=== PATIENT | female | born 1930 | race Caucasian/White ===

== ENCOUNTER 2019-05-28 22:37 | Inpatient (IN) ==
[2019-05-28] MEDS ORDERED: ASPIRIN PO ONE (23:16)
[2019-05-28] MEDS ORDERED: NITROGLYCERIN SL PRN (23:16)
--- NOTE | 2019-05-28 23:27 | PROVIDER DOCUMENTATION ---
HPI-Chest Pain - General Chief Complaint: Chest Pain Stated Complaint: cp Time Seen by Provider: 05/28/19 22:56 Allergies/Adverse Reactions: Patient Allergies Allergy/AdvReac Type Severity Reaction Status Date / Time Sulfa (Sulfonamide Allergy Intermediate RASH Verified 10/09/17 21:30 Antibiotics) Home Medications: Home Medication List Medication Instructions Recorded Confirmed Last Taken Type Ipratropium/Albuterol Sulfate 3 ml IH PRN PRN 11/06/13 09/27/16 11/05/13 23:00 History [Iprat-Albut 0.5-3(2.5) mg/3 ml] Cetirizine HCl [Zyrtec] 10 mg PO DAILY 09/27/16 09/27/16 09/26/16 21:00 History Clopidogrel Bisulfate [Plavix] 75 mg PO DAILY 09/27/16 10/09/17 10/09/17 History Ferrous Sulfate [Iron] 325 mg PO TID 09/27/16 10/09/17 10/09/17 History Methocarbamol [Robaxin-750] 750 mg PO DAILY #10 tablet 09/27/16 Unknown Rx Omeprazole [Prilosec] 40 mg PO DAILY 09/27/16 09/27/16 09/27/16 09:00 History Ranolazine E.r. [Ranexa] 500 mg PO BID 09/27/16 10/09/17 10/09/17 History Tramadol [Ultram] 50 mg PO Q8HR #12 tablet 09/27/16 Unknown Rx Amlodipine [Norvasc] 2.5 mg PO DAILY #30 tab 10/10/17 Unknown Rx Aspirin EC 81 mg PO DAILY #30 tab 10/10/17 Unknown Rx Levothyroxine [Synthroid] 88 mcg PO DAILY #30 tab 10/10/17 Unknown Rx Metoprolol Succinate E.r. [Toprol 25 mg PO DAILY #30 tab 10/10/17 Unknown Rx Xl] Spironolactone/Hctz [Aldactazide 1 ea PO DAILY #30 tab 10/10/17 Unknown Rx ] - History of Present Illness-CP Nature of Presenting Problem: 88y/o female with his of retrosternal chest pain which started around 9.30pm today. She states she was taking her pills this pm and choked while drinking water resulting in moderately severe chest pain which is now easing off . She has NTG for PRN use and takes baby ASA daily, she has not had any of both meds today. Denies nausea or diaphoresis Location: reports: central Chest Pain Radiation: reports: no radiation Quality of Pain: reports: sharp (but improving now without med) Onset/Duration: abrupt (after choking while taking her meds this PM), 1-3 hours ago Timing: still present, improving Modifying Factors: improves with: nothing Associated Symptoms: reports: denies symptoms Nitro Today/Relief: no nitro taken today Aspirin Treatment Today: no aspirin today Similar Symptoms Previously?: Yes Review of Systems - Adult - REVIEW OF SYSTEMS - ADULT Constitutional: reports: no symptoms reported Eyes: reports: no symptoms reported Cardiovascular: reports: see HPI Respiratory: reports: see HPI Gastrointestinal: reports: no symptoms reported Genitourinary: reports: no symptoms reported Musculoskeletal: reports: no symptoms reported Integumentary: reports: no symptoms reported Neurological: reports: no symptoms reported Psychiatric: reports: no symptoms reported Endocrine: reports: no symptoms reported Hematologic/Lymphatic: reports: no symptoms reported Allergic/Immunologic: reports: no symptoms reported Past History - Adult - PAST MEDICAL HISTORY-ADULT Review of Records: reports: Nursing Assessment Review, Medications Reviewed, Social history reviewed & non-contributory. Cardiovascular: reports: cardiac disease, CAD, HTN Respiratory: reports: denies history Gastrointestinal: reports: GERD (has had her esophagius stretched in the past) Genitourinary: reports: denies history Musculoskeletal: reports: denies history Neurological: reports: denies history Psychiatric: reports: denies history Endocrine/Immune: reports: denies history - PRIOR SURGERIES/PROCEDURES Surgical/Procedure History: reports: reviewed, not pertinent - IMMUNIZATION STATUS Childhood Immunizations: See Nurse Assessment Flu Vaccine: See Nurse Assessment - SOCIAL HISTORY Smoking: denies Substance Use: none/never Alcohol Use Frequency: rarely (Does not drink alcohol) Physical Exam-General - CONSTITUTIONAL General Appearance: appears well - EYES Eyes: PERRL/EOMI - NECK Neck: non-tender, full range of motion, supple - RESPIRATORY Respiratory: chest non-tender, lungs clear, normal breath sounds - CARDIOVASCULAR Cardiovascular: regular rate, rhythm, no edema, no murmur - GASTROINTESTINAL (ABDOMEN) Abdominal Exam: non tender, soft, no organomegaly - MUSCULOSKELETAL Extremity: normal range of motion, non-tender, normal gait (ambulated to the barthroom okay) - SKIN Integumentary: normal color, normal turgor - NEUROLOGIC Neurologic: grossly normal - PSYCHIATRIC Psych/Mental Status: normal mood/affect, normal thought content, normal thought process Progress - PLAN OF CARE/RESULTS Progress/Plan/Lab Results: Vital Signs - 8 hr 05/28/19 23:02 Temperature 97.7 F Pulse Rate 84 Respiratory Rate 14 Blood Pressure 180/84 O2 Sat by Pulse Oximetry 98 Laboratory Results - last 24 hr 05/28/19 05/28/19 05/28/19 22:50 22:50 22:50 WBC 4.78 L RBC 4.71 Hgb 15.6 Hct 45.8 MCV 97.2 MCH 33.1 H MCHC 34.1 RDW Std Deviation 14.0 Plt Count 254 MPV 11.1 H Immature Gran % (Auto) 0.0 Neut % (Auto) 55.9 Lymph % (Auto) 30.1 [place] % (Auto) 11.5 H Eos % (Auto) 1.5 Baso % (Auto) 1.0 H Immature Gran # (Auto) 0.00 Neut # (Auto) 2.67 Lymph # (Auto) 1.44 [place] # (Auto) 0.55 Eos # (Auto) 0.07 Baso # (Auto) 0.05 Sodium 140 Potassium 4.2 Chloride 104 Carbon Dioxide 24 L Anion Gap 12 BUN 18 Creatinine 0.7 Estimated GFR/1.73 m2 > 60 BUN/Creatinine Ratio 26 Glucose 140 H Calculated Osmolality 284 Calcium 9.7 Total Bilirubin 0.22 AST 19 ALT 9 L Alkaline Phosphatase 92 Troponin T 0.012 Total Protein 7.3 Albumin 4.3 Globulin 3.0 Albumin/Globulin Ratio 1.4 TSH 05/28/19 22:50 WBC RBC Hgb Hct MCV MCH MCHC RDW Std Deviation Plt Count MPV Immature Gran % (Auto) Neut % (Auto) Lymph % (Auto) [place] % (Auto) Eos % (Auto) Baso % (Auto) Immature Gran # (Auto) Neut # (Auto) Lymph # (Auto) [place] # (Auto) Eos # (Auto) Baso # (Auto) Sodium Potassium Chloride Carbon Dioxide Anion Gap BUN Creatinine Estimated GFR/1.73 m2 BUN/Creatinine Ratio Glucose Calculated Osmolality Calcium Total Bilirubin AST ALT Alkaline Phosphatase Troponin T Total Protein Albumin Globulin Albumin/Globulin Ratio TSH 8.67 H Orders Category Date Time Status CBC WITH ELECTRONIC DIFF [HEME] Stat Lab 05/28/19 22:50 Completed COMPREHENSIVE METABOLIC PANEL [CHEM] Stat Lab 05/28/19 22:50 Completed TROPONIN T Stat Lab 05/28/19 22:50 Completed TSH Stat Lab 05/28/19 22:50 Completed Aspirin Med 05/28/19 23:16 Discontinued 325 mg PO NOW ONE Nitroglycerin Sl [Nitroglycerin] Med 05/28/19 23:16 Active 0.4 mg SL Q5M PRN PRN EKG [EKG] Stat Ther 05/28/19 23:01 Draft EKG [EKG] Stat Ther 05/28/19 23:10 Draft EKG [EKG] Stat Ther 05/28/19 23:51 Draft Patient with chest pain , GABO v2 with negative troponin x1, chest pain subsided with NTG and ASA 325mg. pt now having mild epigastrium pain possibly from ASA. She has a heart score of 4 and will be admitted. Discussed with Hospitalist Dr Baker. Patient consented verbally to admission Result Diagrams: 05/28/19 22:50 05/28/19 22:50 - EKG 1 Rhythm: NSR [place]: left ST Wave: elevated (v2) 2 Rhythm: NSR [place]: left ST Wave: elevated (V2) - CONSULTS/PCP/HOSPITALIST Notification Consult Disposition: Admit (Discussed with Dr Baker at 1.17AM today 05/29/19) Departure - Departure Date of Disposition Decision: 05/29/19 Time of Disposition Decision: :17 DIAGNOSIS: Chest pain Qualifiers: Chest pain type: unspecified Qualified Code(s): R07.9 - Chest pain, unspecified Disposition: ADMITTED INPATIENT 09 Certified Medical Emergency: Emergent Condition: Fair Referrals and Follow-Ups: Fer Bryant MD [Primary Care Provider] - - Critical Care Note This patient required my direct & personal management of CC.: No Attestation - Physician/ SELMA Attestation The physician spent face to face time with patient:: Yes Advanced Practice Provider documentation review:: Supervising physician onsite and consulted in the evaluation and care of this patient. The physician did have a face to face encounter with the patient.
[2019-05-28 23:37] LABS: BASO# 0.05 X1000 (0.0-0.2); EOS# 0.07 X1000 (0.0-0.7); EOS% 1.5 % (0.0-10.0); HEMATOCRIT 45.8 % (37.0-47.0); HEMOGLOBIN 15.6 g/dL (12.0-16.0); LYMPH# 1.44 X1000 (1.2-3.4); LYMPH% 30.1 % (20.5-51.1); MCH 33.1 PG (27-31); MCHC 34.1 g/dL (33-37); MCV 97.2 FL (81-99); MONO# 0.55 X1000 (0.11-0.59); MONO% 11.5 % (1.7-9.3); MPV 11.1 FL (7.4-10.4); NEUT# 2.67 X1000 (1.4-6.5); NEUT% 55.9 % (42.2-75.2); PLT 254 X1000 (130-400); RBC 4.71 XMIL (4.2-5.4); WBC 4.78 X1000 (4.8-10.8)
--- NOTE | 2019-05-28 23:40 | EKG Report ---
Test Performed on : 05/28/2019 11:05:24 PM Test Reason : chest pain Blood Pressure : / mmHG Vent. Rate : 078 BPM Atrial Rate : 078 BPM P-R Int : 150 ms QRS Dur : 094 ms QT Int : 398 ms P-R-T Axes : 059 -31 095 degrees QTc Int : 453 ms Normal sinus rhythm. Possible Left atrial enlargement Left axis deviation Incomplete right bundle branch block Left ventricular hypertrophy Septal infarct (cited on or before 28-MAY-2019) T wave abnormality, consider lateral ischemia Abnormal ECG When compared with ECG of 28-MAY-2019 22:40, (Unconfirmed) fusion complexes are no longer present premature ventricular complexes. are no longer present premature supraventricular complexes. are no longer present Serial changes of Septal infarct present Unconfirmed Result
[2019-05-28 23:52] LABS: SODIUM 140 mmol/L (136-145)
[2019-05-28 23:53] LABS: AGAP 12; ALB/GLOB RATIO 1.4; ALBUMIN 4.3 g/dL (3.5-5.0); ALKALINE PHOSPHATASE 92 U/L (32-104); BUN 18 mg/dL (8-22); CALCIUM 9.7 mg/dL (8.8-10.2); CHLORIDE 104 mmol/L (98-107); COSMO 284; CREATININE 0.7 mg/dL (0.5-0.9); ESTIMATED GFR > 60; GLUCOSE 140 mg/dL (70-104); POTASSIUM 4.2 mmol/L (3.5-5.1); TCO2 24 mmol/L (25-35); TOTAL BILIRUBIN 0.22 mg/dL (0.20-1.00); TOTAL PROTEIN 7.3 g/dL (6.3-8.3)
--- NOTE | 2019-05-28 23:54 | EKG Report ---
Test Performed on : 05/28/2019 11:06:10 PM Test Reason : CP Blood Pressure : / mmHG Vent. Rate : 079 BPM Atrial Rate : 079 BPM P-R Int : 146 ms QRS Dur : 096 ms QT Int : 400 ms P-R-T Axes : 057 -31 095 degrees QTc Int : 458 ms Normal sinus rhythm. Possible Left atrial enlargement Left axis deviation Incomplete right bundle branch block Left ventricular hypertrophy Septal infarct (cited on or before 28-MAY-2019) T wave abnormality, consider lateral ischemia Abnormal ECG When compared with ECG of 28-MAY-2019 23:05, (Unconfirmed) Serial changes of Septal infarct present Unconfirmed Result
--- NOTE | 2019-05-28 23:54 | EKG Report ---
Test Performed on : 05/28/2019 10:40:49 PM Test Reason : cp Blood Pressure : / mmHG Vent. Rate : 084 BPM Atrial Rate : 084 BPM P-R Int : 142 ms QRS Dur : 092 ms QT Int : 386 ms P-R-T Axes : 059 -32 093 degrees QTc Int : 456 ms Sinus rhythm. with premature supraventricular complexes. and premature ventricular complexes. or fusi on complexes Biatrial enlargement Left axis deviation Incomplete right bundle branch block Left ventricular hypertrophy with repolarization abnormality Septal infarct , age undetermined Abnormal ECG When compared with ECG of 10-OCT-2017 07:03, Significant changes have occurred Unconfirmed Result
[2019-05-29 00:07] LABS: GOT 19 U/L (10-30); GPT 9 U/L (10-36)
[2019-05-29] MEDS ORDERED: ZOFRAN IV PRN (04:17)
[2019-05-29] MEDS ORDERED: TYLENOL PO PRN (04:17)
[2019-05-29] MEDS ORDERED: NITROGLYCERIN TOP SCH (06:30)
--- NOTE | 2019-05-29 06:46 | HISTORY AND PHYSICAL ---
CHIEF COMPLAINT: Chest pain. HISTORY OF PRESENT ILLNESS: This is an 88-year-old female with a past medical history notable for coronary artery disease status post angioplasty in 2013, hypertension, hyperlipidemia, hypothyroidism and GERD. She comes in this morning after having chest pain that started around 9:30 p.m. She states she was taking her pills and choked while drinking water resulting in moderate chest pain roughly 5/10. She had not taken her baby aspirin. She received an aspirin in the emergency room. Pain had somewhat subsided. she stated that the pain was sharp, did not radiate. Nothing made it better, nothing made it worse. She denied any shortness of breath or diaphoresis with the episode. In the ER, her initial troponins were negative. She will be admitted on Observation status. PAST MEDICAL HISTORY: See HPI. PREVIOUS SURGICAL HISTORY: 1. Hysterectomy. 2. Balloon angioplasty in 2013. SOCIAL HISTORY: No alcohol, tobacco or illicit drugs. FAMILY HISTORY: Coronary artery disease in first degree relatives. Mother and father both from myocardial infarction. ALLERGIES: Sulfa. HOME MEDICATIONS: 1. Aspirin 81 mg p.o. daily. 2. Zyrtec 10 mg p.o. daily. 3. Ferrous sulfate 325 mg p.o. t.i.d. 4. Levothyroxine 88 mcg p.o. daily. 5. Ranexa 500 mg p.o. b.i.d. REVIEW OF SYSTEMS: Fourteen point review of systems conducted with the patient and pertinent positives listed above in the HPI. All other systems reviewed and found to be negative. PHYSICAL EXAMINATION: VITAL SIGNS: Temperature 97.6 degrees, pulse 68, respirations 16, blood pressure 146/68, oxygen saturation 99% on room air. GENERAL: 88-year-old female lying in the ER stretcher. Answers all questions appropriately. Awake and alert. No acute distress. HEENT: Head is atraumatic, normocephalic. Pupils equal, round and reactive to light. Extraocular eye movements intact. Sclerae anicteric. Conjunctivae pink. Oral mucosa is moist. NECK: Supple. No JVD. No thyromegaly. Trachea is midline. No cervical lymphadenopathy. CARDIAC: S1, S2 appreciated. No murmurs, gallops, rubs. LUNGS: Clear to auscultation bilaterally. No rhonchi, wheezes, rales. Symmetric rise and fall of respirations. ABDOMEN: Soft, nondistended, nontender. Bowel sounds present all 4 quadrants. Normoactive. No pulsatile masses. No organomegaly. EXTREMITIES: No clubbing, no cyanosis. 1+ edema bilateral lower extremities. 2+ pedal pulses. GENITOURINARY: No bladder distention. Patient voids, otherwise deferred. NEUROLOGICAL: Alert and oriented x3. Cranial nerves 2-12 grossly intact. DIAGNOSTIC DATA: Chest x-ray is pending. LABORATORY DATA: WBC 4.78, hemoglobin 15.6, hematocrit 45.8, platelet count 254,000. Sodium 140, potassium 4.2, chloride 104, carbon dioxide 24, BUN 18, creatinine 0.7, glucose 140. Troponin 0.012. ASSESSMENT AND PLAN: 1. Chest pain, rule out acute myocardial infarction. Consult Dr. Bryant. Trend cardiac enzymes. Nitroglycerin sublingual. We will give nitroglycerin 0.5 mg topically x1 dose. 2. Hypothyroidism. Check TSH, T3, T4. Continue Synthroid. 3. GERD, aware. Protonix 40 daily. 4. Hypertension. Continue home medicines. Continue to monitor. 5. Hyperlipidemia. Check lipid profile. Further recommendations per the patient's clinical course. Dictated by REVA Solis for Farhat Baker MD I have performed a face to face diagnostic evaluation. Labs/ Xrays- reviewed, Exam- Chest- clear, CV- regular. A/P- Chest Pain- Admit, cardiac work up, cardiology consult. Dr. Baker cc: REVA Solis MD [facility]
[2019-05-29] MEDS ORDERED: SYNTHROID PO SCH (07:00)
[2019-05-29] MEDS ORDERED: PROTONIX PO SCH (07:00)
--- NOTE | 2019-05-29 07:26 | Diag Imaging Result Doc PS360 ---
EXAM: CHEST-PORTABLE HISTORY: cp TECHNIQUE: Chest single view COMPARISON: 10/09/2017 FINDINGS: The lungs are hyperexpanded. The heart is not enlarged. The vessels are not distended. There are no infiltrates. No effusion identified. IMPRESSION: Negative exam. Electronically signed by Sea Mnotanez 05/29/2019 7:24 AM
[2019-05-29] MEDS ORDERED: FERROUS SULFATE PO SCH (08:00)
[2019-05-29] MEDS ORDERED: ZYRTEC PO SCH (09:00)
[2019-05-29] MEDS ORDERED: ASPIRIN EC PO SCH (09:00)
[2019-05-29] MEDS ORDERED: RANEXA PO SCH (09:00)
--- NOTE | 2019-05-29 09:15 | EKG Report ---
Test Performed on : 05/29/2019 08:02:58 AM Test Reason : cp Blood Pressure : / mmHG Vent. Rate : 061 BPM Atrial Rate : 061 BPM P-R Int : 148 ms QRS Dur : 084 ms QT Int : 482 ms P-R-T Axes : 066 027 114 degrees QTc Int : 485 ms Normal sinus rhythm. Possible Left atrial enlargement T wave abnormality, consider lateral ischemia Abnormal ECG When compared with ECG of 28-MAY-2019 23:06, (Unconfirmed) Incomplete right bundle branch block is no longer present Criteria for Septal infarct are no longer present Confirmed by Reji DIAZ, MMaria Alejandra Londono ([id number]) on 06/01/2019 12:04:51 PM
[2019-05-29] MEDS ORDERED: LIPITOR PO ONE (09:27)
[2019-05-29] MEDS ORDERED: LOVENOX SUBQ SCH (09:45)
[2019-05-29 10:52] LABS: AGAP 10; BUN 13 mg/dL (8-22); CALCIUM 8.8 mg/dL (8.8-10.2); CHLORIDE 104 mmol/L (98-107); COSMO 280; CREATININE 0.6 mg/dL (0.5-0.9); ESTIMATED GFR > 60; GLUCOSE 107 mg/dL (70-104); POTASSIUM 4.3 mmol/L (3.5-5.1); SODIUM 140 mmol/L (136-145); TCO2 26 mmol/L (25-35)
[2019-05-29 11:50] VITALS: BP 152/76
--- NOTE | 2019-05-29 13:11 | DISCHARGE SUMMARY ---
ADMISSION DATE: 05/27/2019 DISCHARGE DATE: 05/29/2019 DISCHARGE DIAGNOSES: 1. Chest pain secondary to non-ST segment elevation myocardial infarction. 2. Hypothyroidism. 3. Gastroesophageal reflux disease. 4. Hypertension. 5. Hyperlipidemia. CONSULTATIONS: Dr. Calderon from Cardiology. PROCEDURE: X-ray done on admission showed a negative exam. HOSPITAL COURSE: This is an 88-year-old, female, who presented to the emergency department complaining of chest pain. She had angioplasty in 2013. She was admitted to the hospital for observation for chest pain, and the first set of troponins were completely negative. The patient continues to complain of chest pain on and off during the night, and this morning the troponin went up from normal to 0.540. Continued to be elevated. At 0.506. We have consulted Dr. Calderon from Cardiology for this NSTEMI. She already received aspirin. She was placed on Lovenox 1 mg/kg every 12 hours, Atorvastatin. She was transferred to [facility] for further management. cc: Cesar Gloria MD
--- NOTE | 2019-05-29 14:52 | CONSULTATION ---
DATE OF CONSULTATION: 05/29/2019 IMPRESSION: 1. Acute coronary syndrome/probable non ST elevation myocardial infarction. 2. Atherosclerotic coronary disease. Patient is status post previous coronary angioplasty of diagonal branch of left anterior descending coronary in 2013. 3. Hypertension. 4. Hyperlipidemia. RECOMMENDATIONS: 1. Continue aspirin and agree with addition of Lovenox subcutaneously. 2. Given recurrence of chest discomfort this morning and abnormal troponin, favor transfer to [facility] for further care in the event she might need to have urgent coronary intervention. HISTORY OF PRESENT ILLNESS: This 88-year-old white female with past history of previous angioplasty of diagonal branch of left anterior descending coronary in 2013, hypertension, hyperlipidemia, hypothyroidism, and gastroesophageal reflux disease, was admitted thru the emergency room late last night after she presented with chest pain. She relates that late last night, she took one of her medications. She felt as though she choked on her medication and started having some chest discomfort. She describes sharp left-sided chest discomfort initially. Discomfort then spread throughout her chest and to her back and was persistent. Symptoms persisted for more than an hour, and she notified EMS and was brought to the emergency room by ambulance. Her chest symptoms improved in the emergency room. She relates discomfort with her previous coronary disease and prior to previous coronary angioplasty consisted more of a chest pressure. She has also had some exertional left chest burning that would be relieved with rest. This seems to have got worse of late. She relates her chest discomfort last night was neither pleuritic nor positional. She did note some associated mild shortness of breath but there was no radiation. She had some reemergence of chest discomfort radiating to her back this morning. Initial troponin was normal but followup troponin this morning was 0.5. Chest discomfort has since again resolved. PAST MEDICAL HISTORY: 1. Atherosclerotic coronary disease. 2. Hypertension. 3. Hyperlipidemia. 4. Hypothyroidism. 5. Gastroesophageal reflux disease. PAST SURGICAL HISTORY: Includes hysterectomy. ALLERGIES: She is allergic or intolerant to sulfa. MEDICATIONS PRIOR TO ADMISSION: As listed and include aspirin, Zyrtec, iron supplement, levothyroxine and Ranexa. SOCIAL HISTORY: She does not smoke or use alcohol. FAMILY HISTORY: Negative for premature coronary disease. REVIEW OF SYSTEMS: Pulmonary: Noncontributory beyond history of present illness. Gastrointestinal: Noncontributory beyond history of present illness. Constitutional: Noncontributory beyond history of present illness. Remainder of review of systems negative/noncontributory beyond the history of present illness with 14 total systems reviewed. PHYSICAL EXAMINATION: General: A pleasant, elderly white female, in no distress. Vital signs: Blood pressure 159/74, heart rate 64, oxygen saturation 97% on room air. HEENT: Extraocular movements appear intact. Mucous membranes are moist. Neck: Supple. No jugular venous distention. There are no carotid bruits. Chest: Clear to auscultation. Cardiac: Reveals a regular rate and rhythm without appreciable murmur or gallop. Abdomen: Soft. Bowel sounds are normal. Extremities: Without edema. There is some mild chronic venous stasis changes. Neurologic: Reveals her to be alert and fully oriented. Speech is fluent. She moves all 4 extremities equally well. Skin: Warm and dry. Psychiatric: Reveals her mood to be appropriate. DATA: A 12 lead EKG demonstrates sinus rhythm, left atrial abnormality and T-wave abnormality, consider lateral ischemia. LABORATORY DATA: Includes a sodium 140, potassium 4.3, chloride 104, carbon dioxide 26, BUN 13, creatinine 0.6, glucose 107. Initial troponin 0.012 .follow-up troponin 0.540. CPK 102. Triglycerides 163. Cholesterol 208, LDL cholesterol 142, HDL cholesterol 67. TSH 8.67, free T4 1.01. cc: Omid Calderon MD
== END 2019-05-29 12:23 | disposition short-term general hospital (02) | DRG 282 ==
LOC: SUPCPDRO → ED 22:37 → SUATTDRO 05-29 04:03 → 3N 05-29 04:03
PROVIDERS: ATTEND Internal Medicine